=== PATIENT | male | born 1995 | race Caucasian/White ===

== ENCOUNTER 2021-10-25 15:37 | Emergency (ER) | payer OTHER ==
[~2021-10-25] VITALS: Ht 177.8 cm; Wt 93.0 kg
[2021-10-25 15:54] VITALS: BP 130/76
--- NOTE | 2021-10-25 16:19 | NUR ---
PT WAS NOT SEEN BY ERMD PROVIDER. 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
== END 2021-10-25 16:22 | disposition home or self-care (01) ==
LOC: ER 15:39
DX: Z53.21 Procedure and treatment not carried out due to patient leaving prior to being seen by health care provider (principal)